=== PATIENT | male | born 1970 | race Caucasian/White ===

== ENCOUNTER 2017-04-11 18:03 | Emergency (ER) | payer OTHER ==
[2017-04-11 18:19] VITALS: BP 155/94; PULSE 119; TEMP 98.5; BMI 40.3
[2017-04-11] MEDS ORDERED: ALBUTEROL SO4 2.5/IPRATROPIUM 0.5 INH SOL 3 ML VIAL.NEB. NEB ONE (19:02)
[2017-04-11] MEDS ORDERED: predniSONE 20 MG TABLET (UD) ONE (19:02)
--- NOTE | 2017-04-11 20:14 | PDOC ---
History of Present Illness - General Chief Complaint: Respiratory Stated Complaint: CONGESTED/WHEEZING Time Seen by Provider: 04/11/17 18:51 History Source: Patient Exam Limitations: No Limitations - History of Present Illness Initial Comments: 04/11/17 20:10 Patient here with complaints of 5 days of respiratory issues. Suffers from asthma and feels that ALLERGIES have worsened this recent attack. Has been using albuterol and Singulair at home with minimal resolved. Denies fever but phlegm production is worsening and thickening Timing/Duration: reports: changing over time, getting worse Severity: reports: moderate Associated Symptoms: reports: chest pain/soreness, nasal congestion, nasal drainage, shortness of breath. denies: fever/chills Past History - Travel Traveled outside of the country in the last 30 days: No Close contact w/someone who was outside of country & ill: No - Past Medical History Allergies/Adverse Reactions: Allergies Allergy/AdvReac Type Severity Reaction Status Date / Time No Known Allergies Allergy Verified 04/11/17 18:16 Home Medications: Ambulatory Orders Diltiazem Cd [Cardizem Cd -] 120 mg PO DAILY 02/06/16 Fluticasone/Salmeterol [Advair 250-50 Diskus] 1 each IH DAILY 02/06/16 Gemfibrozil 600 mg PO BID 02/06/16 Insulin Glargine,Hum.rec.anlog [Toujeo Solostar] 16 unit SQ DAILY 02/06/16 Linagliptin/Metformin HCl [Jentadueto 2.5 mg-1000 mg Tab] 1 each PO DAILY Montelukast Na [Singulair -] 10 mg PO HS 02/06/16 Ramipril 10 mg PO DAILY 02/06/16 Tiotropium [place] [Spiriva -] 1 inh PO DAILY 02/07/16 Glipizide [Glucotrol -] 5 mg PO BID@0700,1630 #60 tablet 02/09/16 Albuterol 0.083% Nebulizer Yary [Ventolin 0.083% Nebulizer Soln -] 1 neb NEB Q4H PRN #30 vial 04/11/17 Azithromycin [Zithromax -] 250 mg PO UTDICT #6 tab 04/11/17 Prednisone [Deltasone -] 20 mg PO BID #10 tablet 04/11/17 Asthma: Yes Diabetes: Yes HTN: Yes Hypercholesterolemia: Yes Suicide Attempt (Hx): No - Surgical History Abdominal Surgery: No - Psycho/Social/Smoking Cessation Hx Anxiety: No Suicidal Ideation: No Smoking Status: No Smoking History: Never smoked Have you smoked in the past 12 months: No Number of Cigarettes Smoked Daily: 0 Hx Alcohol Use: No Drug/Substance Use Hx: No Substance Use Type: None Hx Substance Use Treatment: No Respiratory Specific PMHX - Complaint Specific PMHX Angina: No Review of Systems - Review of Systems Able to Perform ROS?: Yes Is the patient limited Georgian proficient: Yes Constitutional: Yes: Symptoms Reported, See HPI, Malaise Respiratory: Yes: Symptoms reported, See HPI, Cough, Shortness of Breath, Wheezing Cardiac (ROS): No: Symptoms Reported ABD/GI: No: Symptoms Reported Musculoskeletal: Yes: Symptoms Reported Neurological: Yes: Symptoms reported *Physical Exam - Vital Signs Last Vital Signs Temp Pulse Resp BP Pulse Ox 98.5 F 119 H 19 155/94 96 04/11/17 18:16 04/11/17 18:16 04/11/17 18:16 04/11/17 18:16 04/11/17 18:16 - Physical Exam General Appearance: Yes: Nourished, Appropriately Dressed, Apparent Distress, Moderate Distress HEENT: positive: HILARY, TMs Normal, Pharynx Normal (congested but landmarks easily visualized), Pharyngeal Erythema, Nasal Congestion, Rhinorrhea (clear) Neck: positive: Supple. negative: Tender, Lymphadenopathy (R), Lymphadenopathy (L) Respiratory/Chest: positive: Decreased Breath Sounds, Wheezing. negative: Lungs Clear (course inspiratory and expiratory breath sounds, with audible wheezing), Normal Breath Sounds Cardiovascular: positive: Regular Rate Gastrointestinal/Abdominal: positive: Soft. negative: Tender Extremity: positive: Normal Capillary Refill, Normal Inspection, Normal Range of Motion Integumentary: positive: Dry, Warm, Pale Neurologic: positive: record clerk II-XII NML intact, Fully Oriented, Alert, Normal Mood/ Affect, Normal Response, Motor Strength 5/5 ED Treatment Course - RADIOLOGY Radiology Studies Ordered: Category Date Time Status CHEST PA & LAT [RAD] Stat Radiology 04/11/17 19:52 Taken Progress Note - Progress Note Progress Note: Asthma exacerbation with ALLERGIC rhinitis, will treat with prednisone, DuoNeb' s and obtain chest x-ray rule out any infiltration Medical Decision Making - Medical Decision Making 04/11/17 20:37 Much improved after 3 DuoNeb's, prednisone. Chest x-ray negative for infiltrates. Will send home with more albuterol nebulizers, continued prednisone for 5 days, continued antihistamines and a watch and wait Zithromax. Patient will follow-up with his PMD this week *DC/Admit/Observation/Transfer Diagnosis at time of Disposition: Asthma exacerbation Qualifiers: Asthma severity: moderate persistent Qualified Code(s): J45.41 - Moderate persistent asthma with (acute) exacerbation - Discharge Dispostion Disposition: HOME Condition at time of disposition: Stable Admit: No - Prescriptions Prescriptions: Prednisone [Deltasone -] 20 mg PO BID #10 tablet Albuterol 0.083% Nebulizer Yary [Ventolin 0.083% Nebulizer Soln -] 1 neb NEB Q4H PRN #30 vial PRN Reason: Cough Azithromycin [Zithromax -] 250 mg PO UTDICT #6 tab - Patient Instructions Printed Discharge Instructions: DI for Acute Bronchitis, DI for Allergic Rhinitis Additional Instructions: Rest, drink lots of fluids: Teas, water, soups Saltwater gargles. Consider humidifier in room at night Steamy showers/seem to face break up mucus Avoid contact with allergens, exposure to pollens, close windows on a windy day Lots of handwashing and good hygiene Continue [id number] medications for symptomatic relief- may use allergic eyedrops for itching I Continue antihistamines daily until pollen season is over; Zyrtec, Claritin, Chaya during the daytime and Benadryl at nighttime as will make sleepy Continue albuterol nebulizers 4 times a day for the next 3 days then as needed Prednisone 40 mg daily for next 5 Tylenol or Motrin for fever and pain Followup with private physician in one to 2 days Consider following up with an aligner typewriter/endocrinology teacher for skin testing and possible allergy shots Return to emergency department for worsened symptoms, fevers, dehydration - Post Discharge Activity Work/School Note: Back to Work
--- NOTE | 2017-05-22 14:32 | DS ---
DATE OF ADMISSION: DATE OF DISCHARGE: DATE OF DICTATION: 05/22/2017 The patient is a 47-year-old male with a past medical history of hypertension, diabetes, hyperlipidemia, obesity, admitted with a history of acute shortness of breath. The admitting diagnosis was acute asthma exacerbation tachycardia, afebrile, blood pressure was normal. White count was elevated at the time of admission and the comprehensive panel was normal except that the blood sugar was high. EKG with sinus tachycardia, no ST-T-wave changes. Chest x-ray no acute infiltrate. Patient admitted to ICU and treated with bronchodilators, IV steroid, home medications, and empirically antibiotics started. The patient was stable. Patient followed by Cardiology, Pulmonary. Breathing improved, but patient discharged home on bronchodilators, home medications, and steroid. Patient stable on the floor and at the time of discharge. CLARA SAMUEL M.D. LUIS [id number]
== END 2017-04-11 20:43 | disposition home or self-care (01) ==
LOC: JERFT 18:03
PROC: 3E0F7GC Introduction of Other Therapeutic Substance into Respiratory Tract, Via Natural or Artificial Opening (ICD-10-PCS; principal; 2017-04-11)
PROC: 3E0F7GC Introduction of Other Therapeutic Substance into Respiratory Tract, Via Natural or Artificial Opening (ICD-10-PCS; 2017-04-11)
PROC: 3E0F7GC Introduction of Other Therapeutic Substance into Respiratory Tract, Via Natural or Artificial Opening (ICD-10-PCS; 2017-04-11)
DX: J45.41 Moderate persistent asthma with (acute) exacerbation (principal); I10 Essential (primary) hypertension; E11.9 Type 2 diabetes mellitus without complications; Z79.4 Long term (current) use of insulin; E78.00 Pure hypercholesterolemia, unspecified
CPT/HCPCS: 71020-TC; 99281-25

== ENCOUNTER 2017-12-11 01:52 | Emergency (ER) | payer OTHER ==
[2017-12-11 02:04] VITALS: BP 143/98; PULSE 108; TEMP 97.8; BMI 43.5
--- NOTE | 2017-12-11 02:26 | PDOC ---
History of Present Illness - General Chief Complaint: Blood Sugar Problem Stated Complaint: HIGH BLOOD SUGAR Time Seen by Provider: 12/11/17 02:26 - History of Present Illness Initial Comments: 12/11/17 02:32 Mr. Muhammad is a 47 yo male w/ pmh of HTN, HLD, Asthma, and DMII who presents with complaints of dizzyness, sweating, and facial tingling. He reports this has been going on all day. He was told his blood sugar was over 500 by EMS and is currently receiving a liter of NS. He reports he rarely takes his blood sugar and that he has not been taking his medications lately as well. The patient denies chest pain, shortness of breath, and headache. Denies fever, chills, nausea, vomit, diarrhea and constipation. Denies dysuria, frequency, urgency and hematuria. Allergies: NKDA Past History - Past Medical History Allergies/Adverse Reactions: Allergies Allergy/AdvReac Type Severity Reaction Status Date / Time No Known Allergies Allergy Verified 12/11/17 02:02 Home Medications: Ambulatory Orders Diltiazem Cd [Cardizem Cd -] 120 mg PO DAILY 02/06/16 Fluticasone/Salmeterol [Advair 250-50 Diskus] 1 each IH DAILY 02/06/16 Gemfibrozil 600 mg PO BID 02/06/16 Insulin Glargine,Hum.rec.anlog [Toujeo Solostar] 16 unit SQ DAILY 02/06/16 Linagliptin/Metformin HCl [Jentadueto 2.5 mg-1000 mg Tab] 1 each PO DAILY Montelukast Na [Singulair -] 10 mg PO HS 02/06/16 Ramipril 10 mg PO DAILY 02/06/16 Tiotropium [place] [Spiriva -] 1 inh PO DAILY 02/07/16 Glipizide [Glucotrol -] 5 mg PO BID@0700,1630 #60 tablet 02/09/16 Albuterol 0.083% Nebulizer Yary [Ventolin 0.083% Nebulizer Soln -] 1 neb NEB Q4H PRN #30 vial 04/11/17 Asthma: Yes Diabetes: Yes HTN: Yes Hypercholesterolemia: Yes - Surgical History Abdominal Surgery: No - Suicide/Smoking/Psychosocial Hx Smoking Status: No Smoking History: Never smoked Have you smoked in the past 12 months: No Number of Cigarettes Smoked Daily: 0 Information on smoking cessation initiated: No Hx Alcohol Use: No Drug/Substance Use Hx: No Substance Use Type: None Hx Substance Use Treatment: No Review of Systems - Review of Systems Comments:: 12/11/17 02:35 GENERAL/CONSTITUTIONAL: No fever or chills. No weakness. HEAD, EYES, EARS, NOSE AND THROAT: +Facial tightness/tingling. No change in vision. No ear pain or discharge. No sore throat. CARDIOVASCULAR: No chest pain or shortness of breath RESPIRATORY: No cough, wheezing, or hemoptysis. GASTROINTESTINAL: No nausea, vomiting, diarrhea or constipation. GENITOURINARY: No dysuria, frequency, or change in urination. MUSCULOSKELETAL: No joint or muscle swelling or pain. No neck or back pain. SKIN: No rash NEUROLOGIC: No headache, vertigo, loss of consciousness, or change in strength/ sensation. ENDOCRINE: +Dizziness with sweating. HEMATOLOGIC/LYMPHATIC: No anemia, easy bleeding, or history of blood clots. ALLERGIC/IMMUNOLOGIC: No hives or skin allergy. *Physical Exam - Vital Signs Last Vital Signs Temp Pulse Resp BP Pulse Ox 97.8 F 108 H 20 143/98 96 12/11/17 02:03 12/11/17 02:03 12/11/17 02:03 12/11/17 02:03 12/11/17 02:03 - Physical Exam Comments: 12/11/17 02:36 GENERAL: Awake, alert, and fully oriented, in no acute distress HEAD: No signs of trauma, normocephalic, atraumatic EYES: PERRLA, EOMI, sclera anicteric, conjunctiva clear ENT: Auricles normal inspection, hearing grossly normal, nares patent, oropharynx clear without exudates. Moist mucosa NECK: Normal ROM, supple, no lymphadenopathy, JVD, or masses LUNGS: No distress, speaks full sentences, clear to auscultation bilaterally HEART: Regular rate and rhythm, normal S1 and S2, no murmurs, rubs or gallops, peripheral pulses normal and equal bilaterally. ABDOMEN: Soft, nontender, normoactive bowel sounds. No guarding, no rebound. No masses EXTREMITIES: Normal inspection, Normal range of motion, no edema. No clubbing or cyanosis. NEUROLOGICAL: Cranial nerves II through XII grossly intact. Normal speech, normal gait, no focal sensorimotor deficits SKIN: Warm, Dry, normal turgor, no rashes or lesions noted. ED Treatment Course - LABORATORY CBC & Chemistry Diagram: 12/11/17 02:40 12/11/17 02:40 Medical Decision Making - Medical Decision Making 12/11/17 04:37 Mr. Muhammad is a 47 yo male w/ pmh as described who presents for hyperglycemia. Patient reporting resolution of symptoms following fluid and insulin administration. Patient reports that he has medication at home that he can take as well as refills left. Patient comfortable going home - reports will follow- up with primary care doctor on wednesday and begin taking his medications in the AM. Will d/c. *DC/Admit/Observation/Transfer Diagnosis at time of Disposition: Hyperglycemia - Discharge Dispostion Disposition: HOME - Referrals Referrals: Joesph Corcoran MD [Primary Care Provider] - - Patient Instructions Printed Discharge Instructions: DI for Hyperglycemia -- Adult Additional Instructions: Please return if any return of symptoms, fevers, chills, pain, or any altered mental status. Follow-up with your primary care provider as soon as possible and restart home medications as proscribed. - Post Discharge Activity
[2017-12-11] MEDS ORDERED: INSULIN REGULAR HUMAN 100 UNITS/ML *VIAL IVPUSH ONE (02:44)
[2017-12-11 03:04] LABS: BASO % 0.8 % (0-2.0); EOS % 0.9 % (0-4.5); HEMATOCRIT 47.6 % (35.4-49); HEMOGLOBIN 16.1 GM/dL (11.7-16.9); LYMPH % 34.3 % (8-40); MCH 30.5 pg (25.7-33.7); MCHC 33.8 g/dl (32.0-35.9); MEAN CELL VOLUME 90.4 fl (80-96); MEAN PLT VOLUME 10.2 fl (7.5-11.1); MONO % 7.3 % (3.8-10.2); NEUT % 56.7 % (42.8-82.8); PLATELET COUNT 209 K/MM3 (134-434); RBC 5.27 M/mm3 (4.00-5.60); RDW 13.1 % (11.9-15.9); WHITE BLOOD COUNT 8.8 K/mm3 (4.0-10.0)
[2017-12-11 03:05] LABS: URINE APPEARANCE CLEAR; URINE BILIRUBIN NEGATIVE (NEGATIVE); URINE BLOOD NEGATIVE (NEGATIVE); URINE COLOR STRAW; URINE GLUCOSE (UA) 3+ (NEGATIVE); URINE KETONE TRACE (NEGATIVE); URINE LEUK ESTERASE NEGATIVE (NEGATIVE); URINE NITRITE NEGATIVE (NEGATIVE); URINE PROTEIN NEGATIVE (NEGATIVE); URINE UROBILINOGEN NEGATIVE mg/dL (0.2-1.0)
[2017-12-11] MEDS ORDERED: INSULIN REGULAR HUMAN 100 UNITS/ML *VIAL ONE (03:05)
[2017-12-11 03:34] LABS: ALBUMIN 3.1 g/dl (3.4-5.0); ALK PHOS 168 U/L (45-117); ANION GAP 8 (8-16); BILIRUBIN,TOTAL 0.4 mg/dL (0.2-1.0); BLOOD UREA NITROGEN 20 mg/dL (7-18); CALCIUM 8.2 mg/dL (8.5-10.1); CHLORIDE 101 mmol/L (98-107); CO2 24 mmol/L (21-32); CREATININE 1.1 mg/dL (0.7-1.3); SODIUM 133 mmol/L (136-145); TOT PROT 7.3 g/dl (6.4-8.2)
[2017-12-11 03:38] LABS: GLUCOSE,RANDOM 433 mg/dL (74-106)
[2017-12-11] MEDS ORDERED: SODIUM CHLORIDE 0.9% 500 ML INFUS.BAG IV ONE (04:36)
== END 2017-12-11 04:49 | disposition home or self-care (01) ==
LOC: JER 01:52
PROC: 3E033VG Introduction of Insulin into Peripheral Vein, Percutaneous Approach (ICD-10-PCS; principal; 2017-12-11)
DX: R20.2 Paresthesia of skin (principal); E11.65 Type 2 diabetes mellitus with hyperglycemia; Z79.4 Long term (current) use of insulin; Z79.84 Long term (current) use of oral hypoglycemic drugs; I10 Essential (primary) hypertension; E78.00 Pure hypercholesterolemia, unspecified; J45.909 Unspecified asthma, uncomplicated; Z91.14 Patient's other noncompliance with medication regimen
CPT/HCPCS: 36415; 80053; 81003; 82962; 85025; 99282-25

== ENCOUNTER 2018-03-27 23:46 | Emergency (ER) | payer OTHER | END 2018-03-28 01:42 | disposition home or self-care (01) | LOC: JER 23:46 | CPT/HCPCS: 71046-TC-FY; 99283-25 ==